=== PATIENT | female | born 1950 | race Caucasian/White ===

== ENCOUNTER → 2021-05-19 | Outpatient (CLI) | payer MEDICARE ==
[2021-05-19] MEDS: LEXISCAN IV ONE (12:33)
[2021-05-19] MEDS: AMINOPHYLLINE IV ONE (13:30)
--- NOTE | 2021-05-19 20:22 | PCM.ECHO ---
APPROVED REPORT EXAM: Comprehensive 2D, Doppler, and color-flow Echocardiogram. Patient Location: OUT-PATIENT Indications Chest Pain 2D Dimensions LVOT Diameter 2.03 (1.8-2.4cm) LVEF(%) 69.48 (>50%) M-Mode Dimensions RVDd 2.25 (2.1-3.2cm) Left Atrium(MM) 3.50 (2.5-4.0cm) IVSd 0.65 (0.7-1.1cm) Aortic Root 2.45 (2.2-3.7cm) LVDd 4.40 (4.0-5.6cm) Aortic Cusp Exc 1.50 (1.5-2.0cm) PWd 0.60 (0.7-1.1cm) MV EPSS 0.79 (<0.5cm) IVSs 1.40 cm FS (%) 51.90 % LVDs 2.10 (2.0-3.8cm) ESV(Teich) 14.90 ml PWs 1.05 cm LVEF(%) 83.26 (>50%) Volumes Biplane 2D LV Volumes Biplane 2D LA Volumes LVEDv A4C 96.85 mL LA ESV Index LVESv A4C 29.56 mL Aortic Valve AoV Peak Robin. 1.10 m/s AoV VTI 21.75 cm AO Peak GR. 5.25 mmHg AO Mean GR. 2.85 mmHg LVOT VTI 20.50 cm LVOT Peak Robin. 0.79 m/s ALMAS(VTI)/BSA 3.05 cm2/m2 ALMAS (VTI) 3.05 cm2 Mitral Valve MV E Velocity 0.90m/s MR Peak Gr. 3.45mmHg MV A Velocity 1.15m/s TDI Lateral E' P. V 0.08m/s Medial E' P. V 0.09m/s Pulmonary Valve PV Peak Velocity 0.95m/s PV Peak Grad. 3.80mmHg RVOT VTI 17.09cm Tricuspid Valve TR P. Velocity 2.20m/s RAP ESTIMATE 10.00mmHg TR Peak Gr. 19.72mmHg RVSP 29.72mmHg LEFT VENTRICLE The left ventricle is normal size. The left ventricular systolic function is normal. The left ventricular ejection fraction is within the normal range. There is normal left ventricular wall thickness. There is normal LV segmental wall motion. There is no ventricular septal defect visualized. No left ventricle thrombus noted on this study. LVEF is 60-65%. RIGHT VENTRICLE The right ventricle is normal size. The right ventricular systolic function is normal. There is normal right ventricular wall thickness. ATRIA The left atrium size is normal. The right atrium size is normal. The interatrial septum is intact with no evidence for an atrial septal defect. AORTIC VALVE The aortic valve is normal in structure. There is no aortic valvular stenosis. No aortic regurgitation is present. There is no aortic valvular vegetation. MITRAL VALVE The mitral valve is normal in structure. There is no mitral valve stenosis. Mild mitral regurgitation. There is no evidence of mitral valve vegetations. TRICUSPID VALVE The tricuspid valve is normal in structure. There is no tricuspid valve stenosis. Mild tricuspid regurgitation. There is no tricuspid valve vegetations. PULMONIC VALVE Pulmonic valve is not well visualized. There is no pulmonic valvular stenosis. There is no pulmonic valvular regurgitation. GREAT VESSELS The aortic root is normal in size. Pulmonary artery is not well visualized. Aortic arch is not well visualized. The IVC is normal in size and collapses >50% with inspiration. PERICARDIUM There is no pericardial effusion. There is no pleural effusion. Other Information Study Quality: Fair <Conclusion> The left ventricular systolic function is normal. LVEF is 60-65%. Mild mitral regurgitation. Mild tricuspid regurgitation. Electronically signed by : ALEX UMANA. 05/19/2021 20:21:57
--- NOTE | 2021-05-19 21:53 | STRESS ---
DATE OF SERVICE: 05/19/2021 DICTATOR NAME: ALEX DONG CARDIAC STRESS TEST INDICATION: Chest pain. FINDINGS: Baseline EKG shows normal sinus rhythm with poor R-wave progression, likely normal variant. Stress EKG shows normal sinus rhythm, unchanged from baseline. At the end of recovery, EKG shows normal sinus rhythm, unchanged from baseline. Baseline blood pressure is 128/62 and remained the same during stress. At the end of recovery, the blood pressure was 118/59. Baseline heart rate was 82 beats per minute and rangel to 88 beats per minute during stress. At the end of recovery, the heart rate was 99 beats per minute. Blood pressure and heart rate were appropriate for stress. There were no significant symptoms noted during stress. There were no arrhythmias noted during stress. EKG portion of stress test is negative for myocardial ischemia. Nuclear images were obtained with a rest dose of 11.3 mCi technetium-99 sestamibi, and a stress dose of 30.9 mCi technetium 99 sestamibi. Nuclear images reveal homogeneous tracer distribution across all wall segments with no evidence of myocardial ischemia or infarction. Left ventricular ejection fraction is 66%. EDV is 18 mL, ESV 6 mL. The left ventricle is normal in size. Gated motion images showed normal wall motion across all segments of the left ventricle. There is no evidence of diaphragmatic attenuation artifact. IMPRESSION: 1. Normal myocardial perfusion imaging with no evidence of myocardial ischemia or infarction. 2. Left ventricular ejection fraction of 66%. 3. This is a negative study. Alena JACOBO D.O. DR: RICARDO ASHERD: [id number] RECEIPT: [id number]
== END | disposition home or self-care (01) ==
LOC: RAD 11:27
PROVIDERS: ATTEND Internal Medicine Interventional Cardiology
DX: I08.1 Rheumatic disorders of both mitral and tricuspid valves (principal); R07.9 Chest pain, unspecified
CPT/HCPCS: 78452; 93017; 93306; A9500; J2785; J0280